=== PATIENT | female | born 1980 | race Caucasian/White ===

== ENCOUNTER 2023-07-20 13:12 | Inpatient (IN) | payer MEDICARE ==
[~2023-07-20 13:12] MED LIST: Iopamidol-370 76% 500 ML MDV (1 ML CHARGE) ONE
[2023-07-20] MEDS ORDERED: Morphine 4 MG/ML VIAL ONE (13:27)
[2023-07-20] MEDS ORDERED: LORazepam 2 MG/ML SYR.(CARPUJECT) ONE (13:28)
[2023-07-20] MEDS ORDERED: methylPREDNISolone Sod Succ 40 MG VIAL ONE (13:55)
[2023-07-20] MEDS ORDERED: diphenhydrAMINE 50 MG/ML VIAL ONE (13:55)
[2023-07-20] MEDS ORDERED: Famotidine/PF 20 mg/2ml Vial ONE (13:55)
[2023-07-20 14:21] LABS: #Eosinphils 0.1 thou/uL (0.0-0.7); #Monocytes 0.7 thou/uL (0.11-0.59); #Neutrophils 5.5 thou/uL (1.40-6.50); %Basophils 0.4 % (0.0-1.0); %Eosinophils 1.8 % (0.0-10.0); %Lymphocytes 17.7 % (21.0-51.0); %Monocytes 9.1 % (0.0-10.0); %Neutrophils 70.6 % (42.0-75.0); Hematocrit 34.8 % (36.0-47.0); Hemoglobin 11.8 g/dL (12.0-16.0); Mean Corpuscular HGB CONC 33.9 g/dL (32.0-36.0); Mean Corpuscular Hemoglobin 33.4 pg (27.0-31.0); Mean Corpuscular Volume 98.6 fl (78.0-98.0); Mean Platelet Volume 11.2 fL (7.4-10.4); Platelet Count 190 10x3/uL (130-400); RBC Distribution Width 14.8 % (11.5-14.5); Red Blood Cell (RBC) Count 3.53 mill/uL (4.20-5.40); White Blood Cell (WBC) Count 7.8 10x3/uL (4.8-10.8)
[2023-07-20 14:34] LABS: PTT 35.1 sec (22.9-36.1); Prothrombin Time 13.2 sec (12.0-14.7)
[2023-07-20 14:37] LABS: ALT (SGPT) 21 U/L (8-55); AST (SGOT) 23 U/L (5-34); Albumin 3.8 g/dL (3.5-5.0); Alkaline Phosphatase 230 U/L (40-110); Anion Gap 23 mmol/L (10-20); BUN (Urea Nitrogen) 84 mg/dL (7.0-18.7); Bilirubin, Total 0.7 mg/dL (0.2-1.2); Calc. Creatinine Clearance 0 mL/min (70-130); Carbon Dioxide 20 mmol/L (22-29); Chloride 92 mmol/L (98-107); Estimated GFR 6; Globulin 3.4 g/dL (2.4-3.5); Glucose 68 mg/dL (70-105); Lipase 191 U/L (8-78); Potassium 5.7 mmol/L (3.5-5.1); Protein, Total 7.2 g/dL (6.0-8.3); Sodium 129 mmol/L (136-145)
[2023-07-20 14:41] LABS: Troponin I Less than 0.010 ng/mL (< 0.028)
[2023-07-20] MEDS ORDERED: Morphine 2 MG/ML VIAL ONE (17:03)
[2023-07-20] MEDS ORDERED: Lorazepam 2 MG/ML VIAL SLOW IVP PRN (18:36)
[2023-07-20] MEDS ORDERED: Acetaminophen 325 MG TAB PO PRN (18:36)
[2023-07-20] MEDS ORDERED: Acetaminophen 650 MG Suppository PR PRN (18:36)
[2023-07-20] MEDS ORDERED: Ondansetron PF 4 MG/2 ML Vial IVP PRN (18:36)
[2023-07-20] MEDS ORDERED: Ondansetron ODT 4 MG TAB PO PRN (18:36)
[2023-07-20] MEDS ORDERED: Famotidine 20 MG TAB PO SCH (21:00)
[2023-07-21 00:14] LABS: HBSAg Index 0.21 S/CO (0-0.99); Hep B Core Total Ab Non-Reactive (NonReactive); Hep B Core Total Index 0.16 S/CO (0-0.79); Hep B Surf Ag Non-Reactive S/CO (NonReactive); Hep C IgG Ab Non-Reactive S/CO (NonReactive); Hep C Index 0.05 S/CO (0-0.79)
[2023-07-21 00:36] LABS: HBSAB Concentration 19.59 mIU/mL; Hep B Surf AB Reactive (NonReactive)
[2023-07-21 02:18] VITALS: BMI 32.6
[2023-07-21] MEDS: Morphine 2 MG/ML VIAL SLOW IVP PRN ×2 (03:20→08:17)
[2023-07-21] MEDS: Gabapentin 300 MG CAP PO SCH ×2 (03:21→08:15)
[2023-07-21] MEDS: Heparin 5,000 UNITS/ML VIAL SC SCH ×2 (03:21→08:16)
[2023-07-21] MEDS ORDERED: Zolpidem Tartrate 5 MG TAB PO PRN (04:41)
[2023-07-21 05:40] LABS: #Eosinphils 0.1 thou/uL (0.0-0.7); #Monocytes 0.6 thou/uL (0.11-0.59); #Neutrophils 5.8 thou/uL (1.40-6.50); %Basophils 0.3 % (0.0-1.0); %Eosinophils 0.6 % (0.0-10.0); %Lymphocytes 18.2 % (21.0-51.0); %Monocytes 7.3 % (0.0-10.0); %Neutrophils 73.3 % (42.0-75.0); Hematocrit 34.8 % (36.0-47.0); Hemoglobin 11.8 g/dL (12.0-16.0); Mean Corpuscular HGB CONC 33.9 g/dL (32.0-36.0); Mean Corpuscular Hemoglobin 32.9 pg (27.0-31.0); Mean Corpuscular Volume 96.9 fl (78.0-98.0); Platelet Count 167 10x3/uL (130-400); RBC Distribution Width 14.6 % (11.5-14.5); Red Blood Cell (RBC) Count 3.59 mill/uL (4.20-5.40)
[2023-07-21 06:03] LABS: ALT (SGPT) 22 U/L (8-55); AST (SGOT) 24 U/L (5-34); Albumin 3.7 g/dL (3.5-5.0); Alkaline Phosphatase 201 U/L (40-110); Anion Gap 18 mmol/L (10-20); BUN (Urea Nitrogen) 40 mg/dL (7.0-18.7); Bilirubin, Total 0.7 mg/dL (0.2-1.2); Calc. Creatinine Clearance 18 mL/min (70-130); Calcium 9.4 mg/dL (7.8-10.44); Carbon Dioxide 24 mmol/L (22-29); Chloride 93 mmol/L (98-107); Estimated GFR 10; Globulin 3.6 g/dL (2.4-3.5); Glucose 99 mg/dL (70-105); Lipase 84 U/L (8-78); Potassium 3.8 mmol/L (3.5-5.1); Protein, Total 7.3 g/dL (6.0-8.3); Sodium 131 mmol/L (136-145)
[2023-07-21] MEDS ORDERED: ALPRAZolam 1 MG TAB PO PRN (07:51)
[2023-07-21] MEDS ORDERED: HYDROcodone/Acetaminophen 10/325 mg Tablet PO PRN (08:15)
[2023-07-21] MEDS ORDERED: Pregabalin 50 MG CAP PO SCH (09:00)
[2023-07-21] MEDS ORDERED: Sertraline 100 MG TAB PO SCH (09:00)
[2023-07-21] MEDS ORDERED: Clopidogrel Bisulfate 75 MG TAB PO SCH (09:00)
[2023-07-21] MEDS ORDERED: Sevelamer Carbonate 800 MG TAB PO SCH (09:00)
[2023-07-21] MEDS ORDERED: Midodrine HCl 5 MG TAB PO SCH (09:00)
[2023-07-21] MEDS ORDERED: Montelukast Sodium 10 mg Tablet PO SCH (09:00)
[2023-07-21] MEDS ORDERED: lamoTRIgine 100 MG TAB PO SCH ×4 (09:00→21:00)
[2023-07-21] MEDS ORDERED: Folic Acid/Vit B Comp W-C PO SCH (09:00)
[2023-07-21] MEDS ORDERED: tiZANidine HCl 4 MG TAB PO SCH (12:00)
[2023-07-21 12:26] VITALS: BP 125/82; TEMP 97.7
[2023-07-21] MEDS ORDERED: Atorvastatin Calcium 40 MG TAB PO SCH ×2 (21:00)
[2023-07-22] MEDS ORDERED: lamoTRIgine 100 MG TAB PO SCH (09:00)
== END 2023-07-21 16:15 | disposition left against medical advice (07) | DRG 100 ==
LOC: ERS 13:12 → OBSVTOIN 18:05 → 2SE 18:05
PROVIDERS: ADMIT Internal Medicine; ATTEND Hospitalist
PROC: 4A00X4Z Measurement of Central Nervous Electrical Activity, External Approach (ICD-10-PCS; principal; 2023-07-20)
DX: G40.901 Epilepsy, unspecified, not intractable, with status epilepticus (principal); N18.6 End stage renal disease; I12.0 Hypertensive chronic kidney disease with stage 5 chronic kidney disease or end stage renal disease; K57.90 Diverticulosis of intestine, part unspecified, without perforation or abscess without bleeding; E87.70 Fluid overload, unspecified; E87.5 Hyperkalemia; N20.0 Calculus of kidney; Z88.0 Allergy status to penicillin; Z91.041 Radiographic dye allergy status; Z79.899 Other long term (current) drug therapy; E78.5 Hyperlipidemia, unspecified; Z86.73 Personal history of transient ischemic attack (TIA), and cerebral infarction without residual deficits; Z96.643 Presence of artificial hip joint, bilateral; F41.9 Anxiety disorder, unspecified; F32.A Depression, unspecified; F17.290 Nicotine dependence, other tobacco product, uncomplicated; Z90.49 Acquired absence of other specified parts of digestive tract; Z99.2 Dependence on renal dialysis; B02.9 Zoster without complications; I25.10 Atherosclerotic heart disease of native coronary artery without angina pectoris; Z79.01 Long term (current) use of anticoagulants
CPT/HCPCS: 36415; 70450; 71045; 71275; 74174; 74177; 80053; 80175; 83690; 83880; 84484; 85025; 85610; 85730; 86704; 93005; 94760; 95816; 95819; 96374; 96375; 96376; J1200; J1642; J1644; J2060; J2270; J2272; J2920; Q9967; S0028